=== PATIENT | female | born 1995 | race African-American/Black ===

== ENCOUNTER 2019-02-16 16:03 | Emergency (ER) | payer MEDICAID ==
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
[2019-02-16 18:21] VITALS: BP 96/67
== END 2019-02-16 18:20 | disposition home or self-care (01) ==
LOC: ED 16:03
DX: O26.892 Other specified pregnancy related conditions, second trimester (principal); R10.9 Unspecified abdominal pain; Z3A.28 28 weeks gestation of pregnancy
CPT/HCPCS: 36415; 76815; 86850; 86900; 86901; 99282

== ENCOUNTER 2019-05-11 14:23 | Inpatient (IN) | payer OTHER ==
[2019-05-11] MEDS ORDERED: Lactated Ringers 1000 ML Bag* 1,000 ML IV ONE (15:58)
[2019-05-11] MEDS ORDERED: Buffered Lidocaine 1% SYRIN* 1 ML/SYRINGE INTRADERM ONE (15:58)
[2019-05-11] MEDS ORDERED: Lactated Ringers 1000 ML Bag* 1,000 ML IV SCH (16:00)
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
[2019-05-11] MEDS ORDERED: Dinoprostone* 10 MG VAG.SUPP VAGINAL ONE (16:30)
[2019-05-11 17:44] LABS: Urine Benzodiazepine Screen None Detected (None Detect); Urine Opiates Screen None Detected (None Detect)
--- NOTE | 2019-05-11 19:39 | PN ---
Progress Note - Progress Note Date of Service: 05/11/19 SOAP: Subjective: Pt feeling mild cramping, otherwise comfortable. Mother at bedside. Objective: FHR: Baseline 140/ moderate variability/ + accels/ no decels UCs: mild irregular Cervidil in place BP: 119/71 Assessment: Pt is 23 year old at 40 0/7 weeks gestation undergoing cervical ripening / IOL for suspected IUGR. No current evidence of acidemia. Plan: Continue Cervidil unless onset active labor. Frequent EFM. Consulting regularly with Dr. Moy.
--- NOTE | 2019-05-12 01:39 | PN ---
Progress Note - Progress Note Date of Service: 05/12/19 SOAP: Subjective: Pt more uncomfortable with ctx. Unable to sleep. Initially requested something for pain, now would like to wait and see how things progress. Objective: FHR: Baseline 140/ moderate variability/ no accels/ no decels UCs:were every 1-2 minutes prior to removal of cervidil Cervix: 3cm/ -2/ 80%/ vtx BP:123/82 Cervidil pulled Assessment: Pt made excellent change from the Cervidil. Coping well with ctx although in increased discomfort. No evidence of acidemia. Membranes intact. Plan: Cervidil removed. Pt currently declining pain medication. Will monitor for progression into active labor. Pain relief as needed.
[2019-05-12] MEDS ORDERED: HYDROmorphone INJ* 0.5 MG/0.5 ML SYRINGE IV SLOW PU ONE (03:24)
[2019-05-12] MEDS ORDERED: Promethazine INJ(RESTRICTED)* 25 MG/ML 1 ML VIAL IV ONE (03:25)
[2019-05-12 03:34] LABS: ABS Eosinophils 0.1 10^3/ul (0-0.6); ABS Lymphocytes 1.6 10^3/ul (1.0-4.8); ABS Monocytes 0.8 10^3/ul (0-0.8); ABS Neutrophils 3.4 10^3/ul (1.5-7.7); Hematocrit 37 % (35-47); Hemoglobin 12.6 g/dL (12.0-16.0); Mean Corpuscular HGB Conc 34 g/dL (31-36); Mean Corpuscular Hemoglobin 29 pg (27-31); Mean Corpuscular Volume 83 fL (80-97); Mean Platelet Volume 9.1 fL (7.4-10.4); Platelet Count 235 10^3/uL (150-450); Red Cell Distribution Width 13 % (10-15)
--- NOTE | 2019-05-12 03:51 | PN ---
Progress Note - Progress Note Date of Service: 05/12/19 SOAP: Subjective: Pt uncomfortable with ctx. Used tub for a bit, now requesting pain medication. Objective: Cervix: 3-4cm/ 80%/ -1/ vtx FHR: Baseline 135/ moderate/ + accels/ no decels UCs: 2-3 minutes Membranes intact Assessment: Pt appears to be progressing into active labor. No evidence of acidemia. Plan: Discussed options for pain management, including epidural, nitrous oxide, IV pain medications. Pt with strong preference to avoid epidural, hoping to sleep so would like IV pain meds. Consulted with natalie Fuller to give Dilaudid 1 mg and Phenergan 25 mg. Continuous EFM.
--- NOTE | 2019-05-12 09:20 | PN ---
Progress Note - Progress Note Date of Service: 05/12/19 Note: S: Feeling regular strong ctx, coping well at the moment. Noticed bloody show on toilet. O: VE 8cm/100/vtx 0 FHT 140, mod ludmila, occ early variable decel VSS, afebrile UCs q 2-4 min A: IUP @ 40+1 weeks gestation, induction for suspected IURG Doubt acidemia Intact membranes P: Patient asking about pain meds. Discouraged IV narcotics due to active labor and likely imminent . PARQ discussion nitrous oxide, patient declines for now. Will try to rest between contractions. Anticipate SVB.
[2019-05-12] MEDS ORDERED: Oxytocin in LR* 0 UNITS/0 ML BAG IVPB ONE (10:06)
[2019-05-12] MEDS ORDERED: Ibuprofen TAB* 600 MG ONE (10:32)
[2019-05-12] MEDS ORDERED: Glycerin ADULT SUPP PR PRN (10:32)
[2019-05-12] MEDS ORDERED: Dibucaine 1% 28.35 GM TUBE ONE (10:32)
[2019-05-12] MEDS ORDERED: Witch Hazel PAD* JAR ONE (10:33)
[2019-05-12] MEDS: Dibucaine 1% 28.35 GM TUBE PR PRN (10:37)
[2019-05-12] MEDS: Witch Hazel PAD* JAR TOPICAL PRN (10:37)
--- NOTE | 2019-05-12 11:00 | PROCNOTE ---
[facility] [place] OB: Delivery Note - Delivery A Date of : 05/12/19 Time of : 10:10 [place] Sex: Female - "Kailyn" [place] Weight at : 6 lb 6 oz Score 1 Minute: 9 Score 5 Minutes: 10 Gestational Age in Weeks and Days at Delivery: 40 Weeks and 1 Days Delivery Method: Spontaneous Vaginal Labor: Induced Did Patient attempt ?: N/A, No Previous Amniotic Fluid: Clear Estimated Blood Loss: 200 Anesthesia/Analgesia: IM/IV Delivered By: Jill Law - Nursery Level of Nursery: Regular/Bedside - Perineum Perineal Injury: None/Intact Perineal Repair: None - Additional Delivery Notes Additional Delivery Notes: Patient admitted for induction for suspected IUGR. Single dose of cervidil placed for approx 8 hours lead to active labor with quick progression to complete and pushing. Length of active labor 9'15", pushed for 20 min. Baby born OA with shoulders following smoothly without restitution. Delivered to maternal abdomen with spontaneous cry, HR >110. Cord doubly clamped and cut by sister of patient. Placenta delivered with small push and gentle traction @ 1015. Fundus firm to massage. Baby initiating .
[2019-05-12] MEDS: Docusate CAP* 100 MG PO SCH ×2 (14:13→22:24)
[2019-05-12] MEDS: Acetaminophen TAB* 325 MG PO PRN (14:25)
[2019-05-12] MEDS: Ibuprofen TAB* 600 MG PO PRN ×2 (16:21→22:24)
[2019-05-13] MEDS: Ibuprofen TAB* 600 MG PO PRN ×3 (03:59→20:18)
[2019-05-13 07:27] LABS: ABS Eosinophils 0.1 10^3/ul (0-0.6); ABS Lymphocytes 1.6 10^3/ul (1.0-4.8); ABS Monocytes 0.8 10^3/ul (0-0.8); ABS Neutrophils 6.5 10^3/ul (1.5-7.7); Eosinophil % 1.4 %; Hematocrit 34 % (35-47); Hemoglobin 11.3 g/dL (12.0-16.0); Lymphocyte % 17.2 %; Mean Corpuscular HGB Conc 34 g/dL (31-36); Mean Corpuscular Hemoglobin 28 pg (27-31); Mean Corpuscular Volume 84 fL (80-97); Mean Platelet Volume 8.6 fL (7.4-10.4); Nucleated Red Blood Cells % 0.1; Platelet Count 207 10^3/uL (150-450); Red Blood Count 4.01 10^6 /uL (3.70-4.87); Red Cell Distribution Width 13 % (10-15)
[2019-05-13] MEDS: Docusate CAP* 100 MG PO SCH ×3 (08:12→20:18)
[2019-05-13] MEDS: Acetaminophen TAB* 325 MG PO PRN ×2 (08:16→16:15)
[2019-05-13] MEDS ORDERED: Ferrous Gluconate TAB* 324 MG TAB PO SCH (09:00)
[2019-05-13] MEDS: Witch Hazel PAD* JAR TOPICAL PRN (17:50)
[2019-05-13] MEDS: Dibucaine 1% 28.35 GM TUBE PR PRN (17:50)
[2019-05-14] MEDS: Ibuprofen TAB* 600 MG PO PRN (02:43)
[2019-05-14 07:28] VITALS: BP 123/72
[2019-05-14] MEDS: Docusate CAP* 100 MG PO SCH (08:59)
== END 2019-05-14 13:40 | disposition home or self-care (01) | DRG 560 ==
LOC: MCHOBOUT 14:23 → MCHOB 16:02
PROVIDERS: ADMIT Midwife; ATTEND Midwife
PROC: 10E0XZZ Delivery of Products of Conception, External Approach (ICD-10-PCS; principal; 2019-05-12)
PROC: 3E0P7VZ Introduction of Hormone into Female Reproductive, Via Natural or Artificial Opening (ICD-10-PCS; 2019-05-12)
PROC: 4A1HXCZ Monitoring of Products of Conception, Cardiac Rate, External Approach (ICD-10-PCS; 2019-05-12)
DX: O36.5930 Maternal care for other known or suspected poor fetal growth, third trimester, not applicable or unspecified (principal); O87.2 Hemorrhoids in the puerperium; Z37.0 Single live birth; Z3A.40 40 weeks gestation of pregnancy; O76 Abnormality in fetal heart rate and rhythm complicating labor and delivery; Z28.21 Immunization not carried out because of patient refusal
CPT/HCPCS: 36415; 80307; 85025; 86850; 86900; 86901; A9270-GY; G0480; J1170; J2550